=== PATIENT | male | born 1985 | race Caucasian/White ===

== ENCOUNTER 2022-02-17 14:00 | Outpatient (RCR) | payer OTHER, SELFPAY | END 2022-02-17 14:05 | disposition home or self-care (01) | LOC: PT 14:00 | PROVIDERS: Visit Provider Physician Assistant Medical | DX: M54.16 Radiculopathy, lumbar region (principal); R20.0 Anesthesia of skin; R20.2 Paresthesia of skin | CPT/HCPCS: 97010; 97012; 97014; 97110; 97163; 97164; G0283 ==

== ENCOUNTER 2022-11-15 09:30 | Outpatient (RCR) | payer BC, SELFPAY | END 2022-11-15 09:35 | disposition home or self-care (01) | LOC: PT 09:30 | PROVIDERS: Visit Provider Orthopaedic Surgery | DX: M43.26 Fusion of spine, lumbar region (principal) | CPT/HCPCS: 97010; 97014; 97110; 97116; 97163; 97164; 97530; G0283 ==